=== PATIENT | female | born 1955 | race Caucasian/White ===

== ENCOUNTER 2023-03-03 08:09 | Outpatient (CLI) | payer MEDICARE, SELFPAY ==
--- NOTE | ~2023-03-03 | CT_ITS ---
CT of the Abdomen and Pelvis: Indication: Microscopic hematuria Technique: 2.5 mm axial scans were obtained through the abdomen and pelvis prior to and following in travenous administration of 130 cc of Omnipaque 350. Dose reduction technique was used on this scan b y utilizing automated exposure control and iterative reconstruction technique. The dose-length produc t (DLP) was 1390.37 mGy-cm. COMPARISON: 05/20/2008 Findings: Scans through the lung bases demonstrate right-sided pericardial cyst, unchanged. The liver, spleen, pancreas, gallbladder, adrenals and kidneys are within normal limits. No evidence of aortic aneurysm. No lymphadenopathy. No bowel obstruction or bowel wall thickening. There is no evidence to suggest acute appendicitis. Images through the pelvis were performed. There is a 7.2 x 5.1 cm cystic left adnexal mass with a 3.5 cm more solid-appearing internal mural nodule. No other adnexal mass seen. Urinary bladder unremarka ble. Impression: 7.2 x 5.1 cm cystic left adnexal mass with 3.5 cm mural nodule. Both benign and malignant ovarian les ions are within the differential diagnosis. Gynecological surgical consultation recommended. No definite etiology for hematuria identified. Right-sided pericardial cyst, stable since 2007. Reviewed, dictated and finalized at location . Impression: 7.2 x 5.1 cm cystic left adnexal mass with 3.5 cm mural nodule. Both benign and malignant ovarian lesions are within the differential diagnosis. Gynecological surgical consultation recommended. No definite etiology for hematuria identified. Right-sided pericardial cyst, stable since 2007.
[2023-03-03 08:33] LABS: Estimated Glomerular Filt Rate > 60
== END 2023-03-03 08:10 | disposition home or self-care (01) ==
PROVIDERS: PCP Nurse Practitioner Family; Visit Provider Urology
DX: R31.29 Other microscopic hematuria (principal); R19.09 Other intra-abdominal and pelvic swelling, mass and lump; Q24.8 Other specified congenital malformations of heart
CPT/HCPCS: 74178; Q9967

== ENCOUNTER 2024-01-24 15:54 | Emergency (ER) | payer MEDICARE, SELFPAY ==
--- NOTE | 2024-01-24 16:01 | ED.URI ---
HPI - URI/Sore Throat General Chief Complaint: Upper Respiratory Infection Stated Complaint: LOSING VOICE/SORE THROAT/COUGH/SNEEZING Time Seen by Provider: 01/24/24 16:24 Source: patient and RN notes reviewed Mode of arrival: ambulatory Limitations: no limitations History of Present Illness HPI Narrative: 68-year-old female presents with concern for hoarse voice, sore throat, sneezing and cough. Denies fever, body aches, chills, sweats MD elicited complaint: sore throat Related Data Home Medications Medication Instructions Recorded Confirmed rosuvastatin 10 mg tablet 10 mg PO DAILY 01/24/24 01/24/24 Allergies Allergy/AdvReac Type Severity Reaction Status Date / Time codeine AdvReac Mild Unknown Verified 01/24/24 16:08 Review of Systems Review of Systems: CONSTITUTIONAL: Denies malaise, chills, sweats, or fever. EYES: Denies visual changes, redness, or discharge. ENT: Reports rhinorrhea, congestion, sneezing, hoarse voice, and sore throat. CARDIOVASCULAR: Denies chest pain, palpitations, or edema. RESPIRATORY: Reports cough. Denies dyspnea. GASTROINTESTINAL: Denies abdominal pain, nausea, vomiting, diarrhea SKIN: Denies rash or itching. MUSCULOSKELETAL: Denies myalgia. NEUROLOGIC: Denies headache. All systems reviewed & are unremarkable except as noted in HPI and below PMFSH Past Medical History Medical History (Updated 01/24/24 @ 16:34 by Susanna Tate NP) BMI 26.0-26.9,adult Situational anxiety White coat syndrome without diagnosis of hypertension Surgical History Surgical History H/O oral surgery History of vaginal delivery Family History Family History Father Malignant neoplasm of prostate Heart disease Grandparent Breast cancer Sibling Malignant neoplasm of prostate Social History Social History Smoking status: Never smoker Second hand tobacco smoke exposure: No Alcohol intake: never Substance use: never Gender identity (if verbalized by the patient): Female Spiritual care concerns: No Agree to blood products: Yes Comments At time of signature, agree with nursing past medical, surgical, social and family history. There is no relevant family history pertinent to the presenting complaint Exam Narrative: GENERAL: Well-appearing, well-nourished, and in no acute distress. HEAD: Normocephalic EYES: PERRLA, conjunctivae clear ENT: Nares clear, turbinates edematous and erythematous, clear discharge. Mucous membranes moist. TM pearly long with dull light reflex bilaterally; no tragal tenderness. Oropharynx not erythematous without lesions. Tonsils not enlarged and without exudate, no drooling, no trismus, uvula midline. Hoarse voice noted NECK: Supple. No lymphadenopathy CHEST: Clear to auscultation, breath sounds equal. No wheezing, rhonchi, rales, or stridor. No respiratory distress, speaks in full sentences. HEART: Regular rate and rhythm. No murmur heard. SKIN: Warm, dry, no rash. NEURO: Alert and oriented x3. PSYCH: Normal mood and affect Course Course Emergency Course: Patient is aware of diagnosis, understands and agrees to treatment plan. Anticipatory guidance given. Patient agrees to follow-up as directed and is aware of reasons to seek care at the emergency department. Portions of this record may have been created with voice recognition software Level of Care: Express Care Visit Vital Signs Vital signs: Reviewed. MDM - URI/Sore Throat MDM Narrative Medical decision making narrative: Differential diagnosis considered: Travis virus, strep pharyngitis, allergic rhinitis, upper respiratory tract infection, sinusitis, rhinosinusitis, nasopharyngitis. viral pharyngitis, otitis media, otitis externa, pneumonia, bronchitis, viral cough syndrome, viral syndrome, and influenza. Exam findings show no
[2024-01-24 16:19] VITALS: BP 153/75; PULSE 90; RESP 16; TEMP 36.6; O2SAT 97
== END 2024-01-24 16:38 | disposition home or self-care (01) ==
PROVIDERS: Emergency Provider Nurse Practitioner; PCP Nurse Practitioner Family
DX: J02.9 Acute pharyngitis, unspecified (principal)
CPT/HCPCS: 87081; 87804; 87880; 99213; G0463

== ENCOUNTER 2024-03-07 11:52 | Outpatient (CLI) | payer MEDICARE, SELFPAY ==
--- NOTE | ~2024-03-07 | CT_ITS ---
CT of the Abdomen and Pelvis: Indication: Hematuria Technique: 2.5 mm axial scans were obtained through the abdomen and pelvis prior to and following in travenous administration of 130 cc of Omnipaque 350. Dose reduction technique was used on this scan b y utilizing automated exposure control and iterative reconstruction technique. The dose-length produc t (DLP) was 1104.24 mGy-cm. COMPARISON: 03/03/2023 Findings: Scans through the lung bases demonstrate right pericardial cyst, similar to prior exam. The liver, spleen, pancreas, gallbladder, adrenals and kidneys are within normal limits, aside from s mall left renal cyst. No evidence of aortic aneurysm. No lymphadenopathy. No bowel obstruction or bowel wall thickening. There is no evidence to suggest acute appendicitis. Images through the pelvis were performed. Urinary bladder unremarkable. No pelvic mass seen. No ascit es. Impression: No significant abnormality seen. No etiology for hematuria. Stable right pericardial cyst. Reviewed, dictated and finalized at location . Impression: No significant abnormality seen. No etiology for hematuria. Stable right pericardial cyst.
[2024-03-07 12:53] LABS: Estimated Glomerular Filt Rate > 60
== END 2024-03-07 11:53 | disposition home or self-care (01) ==
LOC: ANHIMG 11:52
PROVIDERS: PCP Nurse Practitioner Family; Visit Provider Physician Assistant
DX: R31.0 Gross hematuria (principal); I31.8 Other specified diseases of pericardium
CPT/HCPCS: 74178; Q9967

== ENCOUNTER 2025-03-15 12:43 | Outpatient (CLI) | payer MEDICARE, SELFPAY ==
--- NOTE | ~2025-03-15 | MR_ITS ---
MRI of the right knee Clinical history: Pain Technique: Coronal proton density and proton density-weighted images, sagittal proton-density and T2 fat-sat images, and axial proton-density fat-saturated images were acquired. Findings: Anterior and posterior cruciate ligaments are intact. Medial collateral ligament and the la teral collateral ligament complex are intact. Popliteus tendon is intact. There is complex tearing of the posterior horn and body of the medial meniscus with probable horizont al and vertical tear components. There is patchy high-grade chondral age the patella, especially the apex. There is a high-grade chond romalacia of the medial compartment at the central aspect and towards the joint line. There is mild c hondral malacia the lateral compartment. Extensor mechanism is intact. Small joint effusion present. Minimal Blel's cyst. Impression: Complex tearing of the posterior horn and body of medial meniscus. Degenerative change, as above, worst at the patella and medial compartment. Reviewed, dictated and finalized at location . Impression: Complex tearing of the posterior horn and body of medial meniscus. Degenerative change, as above, worst at the patella and medial compartment.
== END 2025-03-15 12:44 | disposition home or self-care (01) ==
LOC: GOSHIMG 12:44
PROVIDERS: PCP Physician Assistant; Visit Provider Physician Assistant
DX: S83.231A Complex tear of medial meniscus, current injury, right knee, initial encounter (principal); X58.XXXA Exposure to other specified factors, initial encounter; M17.11 Unilateral primary osteoarthritis, right knee
CPT/HCPCS: 73721

== ENCOUNTER 2025-06-06 15:03 | Outpatient (CLI) | payer MEDICARE, SELFPAY ==
--- NOTE | ~2025-06-06 | DEXA_ITS ---
Bone Density Report Name: JENNIFER MANUEL Age: 70 Sex: Female Ethnicity: White Date of : 1955 Indication: postmenopausal; screening for osteoporosis; height loss; hysterectomy; Referring Provider: DEIDRE, MICHAEL Fitch Study: Bone densitometry was performed. Exam Date: June 06, 2025 Accession number: [id number] Bone Density: Region BMD T-score Z-score Classification AP Spine(L1-L4) 0.822 -2.0 0.1 Osteopenia Femoral Neck (Left) 0.682 -1.5 0.4 Osteopenia Total Hip (Left) 0.829 -0.9 0.6 Normal Femoral Neck (Right) 0.571 -2.5 -0.6 Osteoporosis Total Hip (Right) 0.789 -1.3 0.3 Osteopenia Total Hip Mean 0.809 -1.1 0.5 Osteopenia World Health Organization criteria for BMD impression classify patients as: Normal (T-score at or above -1.0), Osteopenia (T-score between -1.0 and -2.5), or Osteoporosis (T-score at or below -2.5). 10-year Fracture Risk: FRAX not reported because: Some T-score for Spine Total or Hip Total or Femoral Neck at or below -2.5 Clinical Information Provided by Patient: Has used the following medications: Vitamin D, Calcium Has the following medical conditions: Hysterectomy Patient maximum height was 67.5 Menopause Age: 47 Onset of menses at age 14 Number of children 1 Impression: The patient has osteoporosis, based on the Right Femoral Neck T-score. Discussion: INCREASED RISK OF FRACTURE. BONE DENSITY IS UNDESIRABLY LOW AT ONE OR MORE SKELETAL SITES, CONSISTENT WITH POSTMENOPAUSAL OSTEOPOROSIS. This patient's lowest T-score meets the World Health Organization's (WHO) criteria for osteoporosis at one or more sites (T-score -2.5 or below). In untreated patients, the risk of osteoporotic fracture increases approximately two-fold for each 1.0 SD decrease in T-score. Low bone density is not the only risk factor for fracture; also consider factors such as patient's age, frailty or poor health, risk of falling, risk of injury, previous osteoporotic fracture, family history of osteoporosis, cigarette smoking, low body weight, etc. Not everyone with low bone mineral density has osteoporosis; osteomalacia and other metabolic bone disorders should also be considered. Patients who have osteoporosis should be evaluated for specific diseases and conditions (secondary causes) that may cause or contribute to bone loss. The [place] [employer] (AACE) and National Osteoporosis Foundation (NOF) recommend pharmacologic intervention for all postmenopausal women whose T-score is in this range. The patient should follow a healthful lifestyle (good nutrition with adequate calcium and vitamin D, and appropriate weight-bearing exercise). Follow-Up: Consider a repeat BMD and Vertebral Fracture Assessment (VFA) exam in 2 years or sooner if medically necessary, to reassess this patient's status. Reported by: PRATEEK on 06/06/2025 3:45:00 PM. Reviewed, dictated and finalized at location A.
--- OUTSIDE RECORDS SUMMARY | 2025-06-06 08:26 | XMS_ITS | Encounter Summary ---
Author Organization [facility] Healthcare Address [address] [place] [address] Care Team Providers Care Lump Roller Name Role Phone Hodan Samano NP Primary Care Provider [phone] Koffi Bishop MD Unavailable Adelaide Bernard MD Unavailable [phone] Reason for Referral * Diagnostic Imaging (Routine) - Closed Specialty Diagnoses / Procedures Referred By Contac t Referred To Contact Diagnoses Screening mammogram, encounter for Procedures Screening Mammogram Bilateral W Rajat Screening Mammogram, Self Referral ID Status Reason Start Date Expiration Date Visits Re quested Visits Authorized [id number] Closed 06/05/2025 07/05/2026 1 1 * Diagnostic Imaging (Routine) - Closed Specialty Diagnoses / Procedures Referred By Contac t Referred To Contact Diagnoses Screening mammogram, encounter for Procedures Screening Mammogram Bilateral W Rajat Screening Mammogram, Self Referral ID Status Reason Start Date Expiration Date Visits Re quested Visits Authorized [id number] Closed 06/05/2025 07/05/2026 1 1 Reason for Visit * Diagnostic Imaging (Routine) - Closed Specialty Diagnoses / Procedures Referred By Contac t Referred To Contact Diagnoses Screening mammogram, encounter for Procedures Screening Mammogram Bilateral W Rajat Screening Mammogram, Self Referral ID Status Reason Start Date Expiration Date Visits Re quested Visits Authorized [id number] Closed 06/05/2025 07/05/2026 1 1 Encounter Details Date Type Department Care Team (Latest Contact Info) Description 06/06/2025 8:26 AM CDT Hospital Encounter [id number] [place] [address] Screening mammogram, encounter for Social History Tobacco Use Types Packs/Day Years Used Date Smoking Tobacco: Never Passive Smoke Exposure: Never Smokeless Tobacco: Never Humiliation, Afraid, Rape, and Kick questionnair e Answer Date Recorded Within the last year, have y ou been afraid of your partner or ex-partner? No 01/28/2025 Within the last year, have y ou been humiliated or emotionally abused in other ways by your partner or ex-partner? No Within the last year, have y ou been kicked, hit, slapped, or otherwise physically hurt by your partner or ex-partner? No 01/28/2025 Within the last year, have y ou been raped or forced to have any kind of sexual activity by your partner or ex-partner? No 01/28/2025 AUDIT-C Answer Date Recorded Q1: How often do you have a drink containing alcohol? Never 04/28/2023 Q2: How many drinks containi ng alcohol do you have on a typical day when you are drinking? Patient does not drink Q3: How often do you have si x or more drinks on one occasion? Never 04/28/2023 PHQ-2 Answer Date Recorded PHQ-2 Total Score (If total score is 3 or more points, staff should administer the PHQ-9) 0 12/03/2024 PHQ-9 Answer Date Recorded PHQ-9 Total Score 10 08/02/2024 Personal Safety Answer Date Recorded Have you ever been in or are you currently in a harmful physical or emotional relationship or is someone making you feel afraid or unsafe? Denies 06/14/2023 Comments No Sex and Gender Information Value Date Recorded Sex Assigned at Not on file Legal Sex Female 9:14 PM [employer]ANCE IN[employer] Gender Identity Not on file Sexual Orientation Not on file documented as of this encounter Plan of Treatment Not on file documented as of this encounter Procedures Procedure Name Priority Date/Time Associated Diagnosis Comments SCREENING MAMMOGRAM BILATERAL W RAJAT Schedule Routine, Read Routine (OP Routine) 06/06/2025 8:55 AM CDT Screening mammogram, encounter for documented in this encounter Results * Screening Mammogram Bilateral W Rajat (06/06/2025 8:55 AM CDT) Anatomical Region Laterality Modality Breast Bilateral Mammography Impressions 06/06/2025 9:23 AM CDT BI-RADS ATLAS category (overall): 2 - Benign There is no mammographic evidence of malignancy. A 1 year screening mammogram is recommended. The patient has been or will be contacted. We recommend annual screening mammography for women at average risk of breast cancer beginning at age 40, based on guidelines of the [employer] [employer] (ACR Practice Parameter for the Performance of Screening and Diagnostic Mammography) and [place] [employer]. For women with and elevated risk of breast cancer, please refer to the ACR Practice Parameter for specific screening recommendations. The patient will be entered into a reminder system with a target due date of 1 year for her next screening exam. Narrative 06/06/2025 9:23 AM CDT Screening Mammogram Bilateral W Rajat: 06/06/25 The study was acquired using full field digital technology and interpreted from soft copy. 2D digital mammographic views, as well as 3D digital tomosynthesis were performed in the CC and MLO projections. CLINICAL: Screening mammogram, encounter for. No relevant medical history has been documented for this patient. History of breast cancer in Neg Hx. No comparisons were made when reading this study. BREAST TISSUE: The breasts are heterogeneously dense, which may obscure small masses. FINDINGS: There are benign appearing masses and calcifications in both breasts, not suspiciously changed in the interval. There is no new suspicious finding in either breast on mammogram. us Self Screening Mammogram IMG MAMMO PROCEDURES Fi nal Result documented in this encounter Visit Diagnoses Diagnosis Screening mammogram, encounter for documented in this encounter Care Teams Lump Roller Relationship Specialty Start Date End Date Hodan Samano NP PCP - General Family Medicine 09/27/22 Koffi Bishop MD [address] [id number] Consulting Physician Urology 04/13/23 Adelaide Bernard MD [address] [facility], [address] [address] Consulting Physician Gynecologic Oncology 04/13/23 documented as of this encounter
--- OUTSIDE RECORDS SUMMARY | 2025-06-06 15:08 | XMS_ITS | Clinical Summary ---
Author Organization [facility] Address [address] [place] [address] Phone Care Team Providers Care Mirror Finishing Machine Operator Name Role Phone Hodan Samano NP Primary Care Provider [phone] Koffi Bishop MD Unavailable [phone] Adelaide Bernard MD Unavailable [phone] Allergies Active Allergy Reactions Criticality Noted Date Comments Codeine Vomiting Low 09/27/2022 Medications cholecalciferol , vitamin D3, (VITAMIN D3 ORAL)Indication s:supplement Take 50 mcg by mouth daily after lunch Active CALCIUM ORALIndications :supplement Take 1 tablet by mouth daily after lunch Active cod liver oiL oilIndications: supplement Take 1 tablet by mouth 2 (two) times a day Active rosuvastatin (CRESTOR) 10 mg tablet Take 1 tablet (10 mg total) by mouth daily 90 tablet 1 5 Active sertraline (ZOLOFT) 25 mg tablet Take 1.5 tablets (37.5 mg total) by mouth daily 135 tablet 1 5 Active Additional Information Patient taking differently: 25 mgoral Daily, Reported on 05/03/2025 celecoxib (CeleBREX) 200 mg capsuleIndicati ons:Acute pain of right knee,Arthritis of right knee Take 1 capsule (200 mg total) by mouth daily 90 capsule 1 5 Active ferrous sulfate 325 mg (65 mg of elemental iron) tabletIndicatio ns:Iron Deficiency Anemia Take 1 tablet (65 mg of elemental iron total) by mouth every other day Active cyanocobalamin (Vitamin B-12) 500 mcg tabletIndicatio ns:Prevention of Vitamin B12 Deficiency Take 1 tablet (500 mcg total) by mouth daily Active omeprazole (PriLOSEC) 40 mg capsule Take 1 capsule (40 mg total) by mouth daily 90 capsule 1 5 Active Active Problems Problem Noted Date Diagnosed Date Complex tear of medial menis cus of right knee as current injury 05/03/2025 Well woman exam 01/16/2024 Overview (01/28/2025): Lab: Pap:last 04/15/2023, WNL Labs with PCP Mary:last 05/17/2024, BIRADS:2-Benign, thinks she has an appt. scheduled Colonoscopy:cologuard done 3 years ago, will do again in February BMD:last 10/08/2022, low bone mass PCP is following. Assessment & Plan (01/28/2025 9:30 AM CDT): Complete exam done. Assessment & Plan (04/23/2024 1:14 PM CDT): Due in January 2025 Assessment & Plan (01/16/2024 2:43 PM CDT): Complete exam done Family history of prostate cancer 01/16/2024 Overview (01/16/2024): Dad and brother in their 50s. She thinks her brother was tested. Both metasatic Assessment & Plan (01/16/2024 2:46 PM CDT): She will see if her brother was tested. Suprapubic tenderness 01/16/2024 Assessment & Plan (01/28/2025 9:31 AM CDT): No on exam today Will follow and await cologuard results. Assessment & Plan (04/23/2024 1:18 PM CDT): Will follow We discussed that she needs to make sure she is having cath ua as she did have some vaginal bleeding. Assessment & Plan (01/16/2024 3:06 PM CDT): To ua, micro and c&S Medicare annual wellness visit, subsequent 10/17 Assessment & Plan (10/17/2023 8:58 AM HAND MARKER): A yearly Medicare Annual Wellness Visit has been performed today. Lora Gillespie is up to date on screening tests. She is in need of None- no screening indicated at this time- these have been ordered. She is up to date on needed preventative vaccinations; She is in need of none . These have been ordered/arranged unless otherwise indicated. Hematuria 04/15/2023 Assessment & Plan (02/28/2024 4:23 PM CDT): Has seen Urology for this, has upcoming follow up scheduled for March. Assessment & Plan (02/15/2024 7:47 AM CDT): Recheck urine next week. BOB (generalized anxiety disorder) 09/27/2022 Assessment & Plan (12/03/2024 4:18 PM HAND MARKER): Doing well overall, does feel more tired since we increased to the 50 mg daily. Will try going to 37.5 mg daily--pt to update me on effectiveness. Assessment & Plan (08/02/2024 9:27 AM CDT): Improvement noted on the Sertraline 50 mg daily. Still room for improvement, counseling encouraged again but pt hesitant. Will continue with current regimen and pt to reach out if she needs anything sooner. Assessment & Plan (07/02/2024 3:12 PM CDT): PHQ 22 in office. Has had recent stressors in life that have caused some increased anxiety/depression with patient that is likely being exacerbated by the active UTI. Will continue with the recent increase of Sertraline 50 mg and follow up in 4 weeks. Assessment & Plan (10/17/2023 8:56 AM HAND MARKER): Increased stressors, discussed increasing the Sertraline to 50 mg but will give the holidays/stressors time to work themself out and if still feeling anxious/down we can increase. Assessment & Plan (04/13/2023 8:39 AM CDT): Stable overall, continuing Sertraline 25 mg daily. Refill sent. Assessment & Plan (09/28/2022 12:42 PM HAND MARKER): passed 3 years ago Has been off of Sertraline for 1+ years, feels stable. Reiterated to patient to reach out if she feels that her anxiety worsens. Elevated cholesterol/high density lipoprotein ra martin 01/11/2022 Assessment & Plan (12/03/2024 4:17 PM HAND MARKER): Updated lipid profile ordered, continues Crestor--no side effects. Assessment & Plan (05/30/2024 4:36 PM CDT): Updated lipid profile ordered, continues Crestor--no side effects. Assessment & Plan (10/17/2023 8:57 AM HAND MARKER): Tolerating Statin well, no side effects reported. Updated labs ordered. Assessment & Plan (04/13/2023 8:40 AM CDT): Has stopped taking the Red Yeast Rice, she thought it may be associated to why she got shingles. Discussed that this was unlikely. Will get updated labs. Encounters Date Type Department Care Team Description 06/06/2025 8:26 AM CDT Hospital Encounter [address] [address] Screening mammogram, encounter for 05/03/2025 9:30 AM CDT Ancillary Procedure [facility] Medical Group Imaging at [address] [phone] 05/03/2025 9:30 AM CDT Office Visit [facility] Medical [facility] Orthopedic and Sports Medicine [address] [place] [phone] Min Peacock MD Complex tear of medial meniscus of right knee as current injury, initial encounter (Primary Dx); Right knee pain, unspecified chronicity 05/03/2025 Telephone [facility] Orthopedic and Sports Medicine [address] [place] [phone] Min Peacock MD Surgical Clearance 2025 Results Follow-Up [facility] Primary Care at [address] [phone] Swati Thao NP Stool DNA - Cologuard 03/16/2025 Telephone [facility] Orthopedic [facility] Sports Medicine [address] [place] [phone] Elaine Salas PA from Last 3 Months Immunizations Immunization Administration Dates Next Due Influenza, Quadrivalent, Hig h Dose, Preservative Free, Intrr 08/26/2022,11/13/2021,07/11/2020 Influenza, Trivalent, Adjuva nted, Intramuscular 07/17/2019 Influenza, Unspecified 07/15/2023,2022(Deferred: Patient Refused),10/10/2021(Deferred: Patient Refused) Pneumococcal Conjugate PCV 13 07/17/2019 Pneumococcal Conjugate Pcv20 09/27/2022 Tdap 10/13/2020 ZOSTER Recombinant 02/23/2021,10/13/2020 Surgical History Surgery Date Site/Laterality Comments WISDOM TOOTH EXTRACTION 10/10/1971 - 10/09/1972 COLONOSCOPY BREAST BIOPSY 10/10/1999 - 10/09/2000 Left biopsy and aspiration LAPAROSCOPIC TOTAL HYSTERECTOMY 05/18/2023 N/A HYSTERECTOMY 05/16/2023 and BSO Medical History Medical History Date Comments Motion sickness Anxiety 2018 Family History Medical History Relation Name Comments Prostate cancer Brother 2 Juan Diego both were me tastatic Coronary artery disease Father Manuelabenji grande Heart attack Father Manuelabenji Wyatt Heart disease Father Manuelabenji Wyatt Prostate cancer Father Yessica Wyatt Thyroid cancer Mother Rheum arthritis Other Anesthesia problems Neg Hx Breast cancer Neg Hx no change cmt 01/28/25 Endometrial cancer Neg Hx Ovarian cancer Neg Hx Relation Name Status Comments Brother 1 Ambrocio Brother 2 Juan Diego Alive Brother 3 Noah Alive Father Yessica Wyatt Mother Alive Other Sister Alive Social History Tobacco Use Types Packs/Day Years Used Date Smoking Tobacco: Never Passive Smoke Exposure: Never Smokeless Tobacco: Never Tobacco Cessation:Counseling Given: Not Answered Humiliation, Afraid, Rape, and Kick questionnair e [...] on file Legal Sex Female 9:14 PM HAND MARKER Gender Identity Not on file Sexual Orientation Not on file Obstetrics History Para Term AB IAB SAB Ectopic Multiple Livin g Live Births 1 1 1 1 1 Date Outcome GA Total Labor Labor/2nd/3rd Weight Sex Type Anes PTL Alyx A1 A5 Name Clin Term Last Filed Vital Signs Vital Sign Reading Time Taken Comments Blood Pressure 156/92 05/03/2025 9:37 AM CDT Pulse 74 05/03/2025 9:37 AM CDT Temperature 37 C (98.6 F) 12/03/2024 3:47 PM HAND MARKER Respiratory Rate 18 01/28/2024 2:15 PM CDT Oxygen Saturation 98% 12/03/2024 3:47 PM HAND MARKER Inhaled Oxygen Concentration - - Weight 80.3 kg (177 lb) 05/03/2025 9:37 AM CDT Height 168.9 cm (5' 6.5) 05/03/2025 9:37 AM CDT Body Mass Index 28.14 05/03/2025 9:37 AM CDT Plan of Treatment Health Maintenance Due Date Last Done Comments Hepatitis B Screening 1973 Covid-19 Vaccine (2023- 5 season) 2024 08/26/2022, 04/24/2022, 11/13/2021, Additional history exists Osteoporosis Screening-Bone Density Scan 10/08/2024 10/08/2022 Well Visit 65+ 01/15/2025 01/16/2024, 10/17/2023 Influenza Vaccine (#1) 2025 , 08/26/2022, 11/13/2021, Additional history exists Depression Screening 12/03/2025 12/03/2024, 08/02/2024, 08/02/2024, Additional history exists Fall Risk Assessment 12/03/2025 12/03/2024, 08/02/2024, 02/14/2024, Additional history exists Breast Cancer Screening-Mammogram 06/06/2026 06/06/2025, 05/17/2024, 05/17/2024, Additional history exists Colon Cancer Screening-DNA Stool 03/13/2028 03/13/2025, 02/08/2022, 02/08/2022 DTaP/Tdap/Td Vaccine (2 - Td or Tdap) 10/13/2030 10/13/2020 Zoster Vaccine Completed 02/23/2021, 10/13/2020 Hepatitis C Screening Completed 09/27/2022 Pneumococcal vaccine 65+ Completed 09/27/2022, 10/0 05/2019 Procedures Procedure Name Priority Date/Time Associated Diagnosis Comments SCREENING MAMMOGRAM BILATERAL W JAKUB Schedule Routine, Read Routine (OP Routine) 06/06/2025 8:55 AM CDT Screening mammogram, encounter for XR KNEE RIGHT 4 OR MORE VIEWS Schedule Routine, Read Routine (OP Routine) 05/03/2025 9:35 AM CDT Right knee pain, unspecified chronicity STOOL DNA COLOGUARD Routine 03/13/2025 7:17 AM CDT Colon cancer screening DEXA AXIAL SKELETON BONE DENSITY 1 OR MORE SITES Schedule Routine, Read Routine (OP Routine) 10/08/2022 8:28 AM HAND MARKER Encounter for osteoporosis screening in asymptomatic postmenopausal patient HEPATITIS C ANTIBODY Routine 09/27/2022 3:54 PM HAND MARKER Encounter for hepatitis C screening test for low risk patient from Last 3 Months or Most Recently Relevant to Health Maintenance Results * Screening Mammogram Bilateral W Jakub (06/06/2025 8:55 AM CDT) Anatomical Region Laterality [...] age 40, based on guidelines of the [place] [employer] (ACR Practice Parameter for the Performance of Screening and Diagnostic Mammography) and [employer] [employer]. For women with and elevated risk of breast cancer, please refer to the ACR Practice Parameter for specific screening recommendations. The patient will be entered into a reminder system with a target due date of 1 year for her next screening exam. Narrative 06/06/2025 9:23 AM CDT Screening Mammogram Bilateral W Jakub: 06/06/25 The study was acquired using full [...] Mammogram IMG MAMMO PROCEDURES Fi nal Result * XR Knee Right 4 or More Views (05/03/2025 9:35 AM CDT) Anatomical Region Laterality Modality Lower Extremities, Knee Right Digital Radiography Narrative 05/03/2025 10:02 AM CDT X-ray of the knee viewed and interpreted. There is no evidence of fracture, subluxation, or bony abnormality. Min Peacock MD IMG XR PROCEDURES Final Resu lt * Stool DNA - Cologuard (03/13/2025 7:17 AM CDT) Stool DNA - Cologuard Negative Negative [email or web address] (CLIA #:[id number]) Comment: The Cologuard (TM) test was performed on this specimen. NEGATIVE TEST RESULT. A negative Cologuard result indicates a low likelihood that a colorectal cancer (CRC) or advanced adenoma (adenomatous polyps with more advanced pre-malignant features) is present. The chance that a person with a negative Cologuard test has a colorectal cancer is less than 1 in 1500 (negative predictive value >99.9%) or has an advanced adenoma is less than 5.3% (negative predictive value 94.7%). These data are based on a prospective cross-sectional study of 10,000 individuals at average risk for colorectal cancer who were screened with both Cologuard and colonoscopy. (Niki Domingo al, N Engl J Med 2014;370(14):1286- 1297) The normal value (reference range) for this assay is negative. COLOGUARD RE-SCREENING RECOMMENDATION: Periodic colorectal cancer screening is an important part of preventive healthcare for asymptomatic individuals at average risk for colorectal cancer. Following a negative Cologuard result, the [place] [employer] and U.S. Multi-Society Task Force screening guidelines recommend a Cologuard re-screening interval of 3 years. References: [place] [employer] Guideline for Colorectal Cancer Screening: https://www.cancer.org/cancer/fcscl-aqezkj-vkhpwz/rvznijaae-btjrymnpd-hsvvmbt/ac s-rec ommendations.html.; Nithin DK, Stuart CR, Giorgio JuanK, Colorectal Cancer Screening: Recommendations for Physicians and Patients from the U.S. Multi-Society Task Force on Colorectal Cancer Screening , Am J Gastroenterology 2017; 112:6426-3716. TEST DESCRIPTION: Composite algorithmic analysis of stool DNA-biomarkers with hemoglobin immunoassay. Quantitative values of individual biomarkers are not reportable and are not associated with individual biomarker result reference ranges. Cologuard is intended for colorectal cancer screening of adults of either sex, 45 years or older, who are at average-risk for colorectal cancer (CRC). Cologuard has been approved for use by the U.S. FDA. The performance of Cologuard was established in a cross sectional study of average-risk adults aged 50-84. Cologuard performance in patients ages 45 to 49 years was estimated by sub-group analysis of near-age groups. Colonoscopies performed for a positive result may find as the most clinically significant lesion: colorectal cancer [4.0%], advanced adenoma (including sessile serrated polyps greater than or equal to 1cm diameter) [20%] or non- advanced adenoma [31%]; or no colorectal neoplasia [45%]. These estimates are derived from a prospective cross-sectional screening study of 10,000 individuals at average risk for colorectal cancer who were screened with both Cologuard and colonoscopy. (Niki Domingo al, N Engl J Med 2014;370(14):9248-4942.) Cologuard may produce a false negative or false positive result (no colorectal cancer or precancerous polyp present at colonoscopy follow up). A negative Cologuard test result does not guarantee the absence of CRC or advanced adenoma (pre-cancer). The current Cologuard screening interval is every 3 years. ([place] [employer] and U.S. Multi-Society Task Force). Cologuard performance data in a 10,000 patient pivotal study using colonoscopy as the reference method can be accessed at the following location: www.Modera.co/results. Additional description of the Cologuard test process, warnings and precautions can be found at www.colDatran Mediard.com. Stool 03/13/2025 7:17 AM CDT 03/14/2025 12:27 PM CDT us Hodan Samano NP LAB BODY FLUIDS AND STOOLS ORDER MALA Final Result [facility] (CLIA #:[id number]) [address] [place] [address] * Dexa Axial Skeleton Bone Density 1 or 2 Site (10/08/2022 8:28 AM HAND MARKER) Anatomical Region Laterality Modality Body N/A Other 10/09/2022 10:3 9 AM HAND MARKER Narrative 10/09/2022 10:41 AM HAND MARKER EXAM DESCRIPTION: DEXA AXIAL SKELETON BONE DENSITY 1 OR MORE SITES REASON FOR STUDY: 67 y/o year old F with given history of screening. Postmenopausal Technician Plant And Maintenance/Model: Phizzle Discovery SL (S/N [id number]) CLINICAL INFORMATION: Current height: 66.9 inches Maximum height: 67 inches Weight: 171 pounds Risk factors: Postmenopausal COMPARISON: None available. FINDINGS: AP LUMBAR SPINE L1-L4: Total BMD is 0.890 g/cm2 T-score is -1.4 LEFT HIP: Total BMD is 0.840 g/cm2 T-score is -0.8 Femoral neck BMD is 0.655 g/cm2 T-score is -1.8 FRAX: 10 year risk for a major osteoporotic fracture is 10 %, 10 year risk for a hip fracture is 1.5 % IMPRESSION: Based on the left femoral neck bone mineral density (T-score -1.8 ) the patient has low bone mass . REFERENCE: Bone mineral density: Normal (T-score above or = -1.0) Low bone mass (T-score between -1.0 and -2.5) replaces the previously used term osteopenia Osteoporosis (T-score = or below -2.5) Medical evaluation for secondary causes of low bone mineral density may be appropriate. FRAX is a World Health Organization validated fracture risk assessment tool that calculates a person's 10 year probability of a major osteoporosis related fracture and hip fracture. According to the National Osteoporosis Foundation guidelines, postmenopausal women and men age 50 or older with low bone mass and a 10 year probability of a major osteoporosis related fracture = or greater than 20% or a 10 year probability of a hip fracture = or greater than 3% should be considered for treatment. For further information, including treatment recommendations, please refer to the 2013 ISCD Official Positions (http://www.iscd.org) and the NOF's Clinician's Guide to Prevention and Treatment of Osteoporosis (http://www.nof.org/professionals/clinical-guidelines) THIS IS AN ELECTRONICALLY VERIFIED FINAL REPORT 10/09/2022 10:41 AM - Electronically signed by Zack Melton M.D. MF: JOHNATHAN Report ID: [id number] Reading Location: [id number] Procedure Note Zack Melton MD - 10/09/2022 EXAM DESCRIPTION: DEXA AXIAL SKELETON BONE DENSITY 1 OR MORE SITES REASON FOR STUDY: 67 y/o year old F with given history ofscreening. Postmenopausal Technician Plant And Maintenance/Model: Phizzle Discovery SL (S/N [id number]) CLINICAL INFORMATION: Current height: 66.9 inches Maximum height: 67 inches Weight: 171 pounds Risk factors: Postmenopausal COMPARISON: None available. FINDINGS: AP LUMBAR SPINE L1-L4: Total BMD is 0.890 g/cm2 T-score is -1.4 LEFT HIP: Total BMD is 0.840 g/cm2 T-score is -0.8 Femoral neck BMD is 0.655 g/cm2 T-score is -1.8 FRAX: 10 year risk for a major osteoporotic fracture is 10 %, 10 year risk for ahip fracture is 1.5 % IMPRESSION: Based on the left femoral neck bone mineral density (T-score -1.8 )the patient has low bone mass . REFERENCE: Bone mineral density: Normal (T-score above or = -1.0) Low bone mass (T-score between -1.0 and -2.5) replaces thepreviously used term osteopenia Osteoporosis (T-score = or below -2.5) Medical evaluation for secondary causes of low bone mineral density may be appropriate. FRAX is a World Health Organization validated fracture risk assessmenttool that calculates a person's 10 year probability of a major osteoporosisrelated fracture and hip fracture. According to the National OsteoporosisFoundation guidelines, postmenopausal women and men age 50 or older with low bonemass and a 10 year probability of a major osteoporosis related fracture = or greater than 20% or a 10 year probability of a hip fracture = or greaterthan 3% should be considered for treatment. For further information, including treatment recommendations, please referto the 2013 ISCD Official Positions (http://www.iscd.org) and the NOF's Clinician's Guide to Prevention and Treatment of Osteoporosis (http://www.nof.org/professionals/clinical-guidelines) THIS IS AN ELECTRONICALLY VERIFIED FINAL REPORT 10/09/2022 10:41 AM - Electronically signed by Zack Melton M.D. MF: JOHNATHAN Report ID: [id number] Reading Location: [place] [address] us Hodan Samano NP IMG DXA PROCEDURES Final Result * Hepatitis C antibody (09/27/2022 3:54 PM HAND MARKER) Pathologist [facility] Hep C Ab Nonreactive Nonreactive [facility] Comment: Interpretive Data Nonreactive: Antibodies to HCV not detected. Does NOT exclude the possibility of recent exposure to HCV. Equivocal: Equivocal for HCV antibodies. Supplemental molecular testing will be automatically performed to determine infection status in accordance with current CDC screening recommendations. Reactive: Positive for HCV antibodies. This may represent current or past HCV infection. Supplemental molecular testing will be automatically performed to determine current infection status in accordance with current CDC screening recommendations. Interpretive data was last revised on 2019. Blood 09/27/2022 3:54 PM HAND MARKER 09/27/2022 7:35 PM HAND MARKER us Hodan Samano NP LAB MICROBIOLOGY - GENERAL ORDER MALA Final Result Performing Organization Address City/State/ZIP [place] Phone Number [facility] [address] [address] Department [place] [address] from Last 3 Months or Most Recently Relevant to Health Maintenance Insurance MEDICARE [facility] Address: [facility] [address] [place] [address] [facility] MEDICARE [facility] Address: [address] [address] [place] [address] MEDICARE [facility] Advance Directives For more information, please contact: [phone] Documents on File Type Date Recorded Patient Real Estate Development Manager Expl anation ADVANCE DIRECTIVE 05/16/2023 11:13 AM Care Teams Mirror Finishing Machine Operator Relationship Specialty Start Date End Date Hodan Samano NP PCP - General Family Medicine 09/27/22 Koffi Bishop MD [address] [address] Consulting Physician Urology 04/13/23 Adelaide Bernard MD [address] [facility], [address] [address] Consulting Physician Gynecologic Oncology 04/13/23
== END 2025-06-06 15:04 | disposition home or self-care (01) ==
LOC: ANHFOHIMG 15:05
PROVIDERS: PCP Nurse Practitioner Family; Visit Provider Nurse Practitioner Family
DX: M81.0 Age-related osteoporosis without current pathological fracture (principal); Z78.0 Asymptomatic menopausal state
CPT/HCPCS: 77080